=== PATIENT | male | born 1985 | race African-American/Black ===

== ENCOUNTER 2020-05-06 20:57 | Inpatient (IN) | payer OTHER ==
--- NOTE | 2020-05-06 21:02 | PDOC ---
Attending Attestation - Resident Resident Name: Jamar Novak - ED Attending Attestation I have performed the following: I have examined & evaluated the patient, The case was reviewed & discussed with the resident, I agree w/resident's findings & plan - HPI HPI: 05/06/20 21:00 see resident hpi - Physicial Exam PE: 05/06/20 21:01 see resident exam - Medical Decision Making 05/06/20 21:01 34-year-old male with unresponsiveness driven here by a friend with reports of smoking "dust ". Patient had no palpable pulse when removed from the car, he quickly regained pulses and was arousable to noxious stimuli now protecting his airway and verbalizing Plan for CT head, toxicology evaluation observation Discharge - Discharge Information Problems reviewed: Yes Clinical Impression/Diagnosis: Unresponsive episode - Follow up/Referral - Patient Discharge Instructions - Post Discharge Activity
[2020-05-06] MEDS ORDERED: SODIUM CHLORIDE 0.9% 500 ML INFUS.BAG IV ONE (21:10)
[2020-05-06 21:15] VITALS: BMI 29.8
--- NOTE | 2020-05-06 21:28 | PDOC ---
History of Present Illness - General Chief Complaint: Overdose Stated Complaint: OVERDOSE Time Seen by Provider: 05/06/20 21:00 - History of Present Illness Initial Comments: 05/06/20 21:18 34yo male with no reported PMH was dropped off in a car at the [facility], and the ross carrier driver stated the the patient smoked "dust". Patient was initially unresponsive without a pulse. He quickly regained a pulse and was responsive to noxious stim zee. When interviewed minutes later, patient states he took PCP earlier. Denies other substances. Cannot provide further history. PMH/PSH/Med/Allergies: unable to obtain secondary to patient's intoxication ROS: unable to obtain PE: Gen: no acute distress, intoxicated HEENT: NC/AT. PEARRLA. EOMI. rotary nystagmus Neck: supple Heart: RRR. No m/r/g Lungs: CTAB Abdomen: soft, non-tender, non-distended Extremities: no edema, warm and well perfused Neuro: AAOx2 (not to place), intoxicated, moving all extremities Skin: no wounds or lesions Vital Signs Temp Pulse Resp BP Pulse Ox 97.8 F 90 14 140/94 96 05/06/20 21:12 05/06/20 21:12 05/06/20 21:12 05/06/20 21:12 05/06/20 21:12 MDM: 34yo male with no reported PMH was dropped off in a car at the [facility] and states he took PCP. Was not arousable initially with no pulse. DDX, in addition to PCP intoxication, includes ACS, ICH, rhabdomyolysis, syncope, arrhythmia. -EKG -CT head and c-spine -CBC, CMP, trops, CPK, coags, alcohol level -1000ml NS bolus If becomes agitated, plan for benzodiazepines and possible intubation. Likely admit to obs. 05/06/20 22:00 Signed out to night team. Past History - Medical History Allergies/Adverse Reactions: Allergies Allergy/AdvReac Type Severity Reaction Status Date / Time No Known Allergies Allergy Unverified 02/26/14 14:51 - Psycho-Social/Smoking History Smoking History: Never smoked Have you smoked in the past 12 months: No Information on smoking cessation initiated: No - Substance Abuse Hx (Audit-C & DAST Scrn) In the last yr the pt used illegal drug/Rx for NonMed reason: Yes Score: Yes response is considered Positive: 1 Screen Result (Positive result requires Nsg. DAST-10): Positive *Physical Exam - Vital Signs Last Vital Signs Temp Pulse Resp BP Pulse Ox 97.8 F 90 14 140/94 96 05/06/20 21:12 05/06/20 21:12 05/06/20 21:12 05/06/20 21:12 05/06/20 21:12 ED Treatment Course - LABORATORY CBC & Chemistry Diagram: 05/06/20 21:18 05/06/20 21:18 - ADDITIONAL ORDERS Additional order review: Laboratory Results 05/06/20 21:04 POC Glucometer 73 05/06/20 21:04 POC Glucometer 73 - RADIOLOGY Radiology Studies Ordered: Category Date Time Status CERVICAL SPINE CT W/O CONTR [CT] Stat CT Scan 05/06/20 21:[address] WITHOUT CONTRAST [CT] Stat CT Scan 05/06/20 21:09 Ordered Discharge - Discharge Information Problems reviewed: Yes Clinical Impression/Diagnosis: Unresponsive episode PCP intoxication Qualifiers: Complication of substance-induced condition: with unspecified complication Qualified Code(s): F16.929 - Hallucinogen use, unspecified with intoxication, unspecified - Follow up/Referral - Patient Discharge Instructions - Post Discharge Activity
[2020-05-06 21:29] LABS: BASO % 0.7 % (0-2.0); EOS % 2.9 % (0-4.5); HEMATOCRIT 44.9 % (35.4-49); HEMOGLOBIN 15.4 GM/dL (11.7-16.9); LYMPH % 40.7 % (8-40); MCH 35.1 pg (25.7-33.7); MCHC 34.2 g/dl (32.0-35.9); MEAN CELL VOLUME 102.5 fl (80-96); MEAN PLT VOLUME 8.4 fl (7.5-11.1); MONO % 11.8 % (3.8-10.2); NEUT % 43.9 % (42.8-82.8); PLATELET COUNT 234 K/MM3 (134-434); RBC 4.38 M/mm3 (4.00-5.60); RDW 13.2 % (11.9-15.9); WHITE BLOOD COUNT 7.7 K/mm3 (4.0-10.0)
[2020-05-06 21:40] LABS: INR 1.08 (0.83-1.09); PROTHROMBIN TIME (PATIENT) 12.7 SEC (9.7-13.0)
[2020-05-06 21:43] LABS: ACTIVATED PTT 31.6 SECONDS (25.2-36.5)
[2020-05-06 21:56] LABS: ALBUMIN 4.2 g/dl (3.4-5.0); ALK PHOS 74 U/L (45-117); ANION GAP 8 MMOL/L (8-16); BILIRUBIN,TOTAL 0.8 mg/dL (0.2-1); BLOOD UREA NITROGEN 14.2 mg/dL (7-18); CALCIUM 8.7 mg/dL (8.5-10.1); CHLORIDE 107 mmol/L (98-107); CO2 26 mmol/L (21-32); CREATININE 1.3 mg/dL (0.55-1.3); GLUCOSE,RANDOM 75 mg/dL (74-106); POTASSIUM 3.7 mmol/L (3.5-5.1); SGOT/AST 25 U/L (15-37); SGPT/ALT 28 U/L (13-61); SODIUM 141 mmol/L (136-145); TOT PROT 8.2 g/dl (6.4-8.2)
--- NOTE | 2020-05-06 22:14 | PDOC ---
*Physical Exam - Vital Signs Last Vital Signs Temp Pulse Resp BP Pulse Ox 97.8 F 90 14 140/94 96 05/06/20 21:12 05/06/20 21:12 05/06/20 21:12 05/06/20 21:12 05/06/20 21:12 ED Treatment Course - LABORATORY CBC & Chemistry Diagram: 05/07/20 05:37 05/07/20 05:37 - ADDITIONAL ORDERS Additional order review: Laboratory Results 05/06/20 05/06/20 05/06/20 21:18 21:18 21:04 PT with INR 12.70 INR 1.08 PTT (Actin FS) 31.6 Sodium 141 Potassium 3.7 Chloride 107 Carbon Dioxide 26 Anion Gap 8 BUN 14.2 Creatinine 1.3 Est GFR (CKD-EPI)AfAm 83.68 Est GFR (CKD-EPI)NonAf 72.20 POC Glucometer 73 Random Glucose 75 Calcium 8.7 Total Bilirubin 0.8 AST 25 ALT 28 Alkaline Phosphatase 74 Creatine Kinase 505 H Troponin I < 0.02 Total Protein 8.2 Albumin 4.2 Alcohol, Quantitative 131.7 H 05/06/20 05/06/20 21:18 21:04 RBC 4.38 MCV 102.5 H MCHC 34.2 RDW 13.2 MPV 8.4 Neutrophils % 43.9 Lymphocytes % 40.7 H Monocytes % 11.8 H Eosinophils % 2.9 Basophils % 0.7 POC Glucometer 73 - Medications Given in the ED: ED Medications Discontinued Medications Generic Name Dose Route Start Last Admin Trade Name Freq PRN Reason Stop Dose Admin Sodium Chloride 1,000 ml 05/06/20 21:10 05/06/20 21:46 Normal Saline - IV 05/06/20 21:11 1,000 ml ONCE ONE Administration Medical Decision Making - Medical Decision Making 05/06/20 22:14 Signed out to me by Dr. Novak. Brought in by friend who reports patient had overdosed on PCP. Outside ED found unresponsive and pulseless, but spontaneously recovered. Remains in AMS but protecting airway, sleeping in bed but not responsive to voice, localized to painful stimulus. Labs and CT head ordered. Will ultimately need admission for AMS and likely overdose. 05/07/20 03:41 Labs notable for: - MCV >100 - ETOH 137 - CK 500, consistent with prolonged time down CT head/c-spine negative for pathology. ECG NSR HR 82 QTc 428 no AALIYAH/D or TWI CXR no gross pathology Discussed case with admitting team, accepts for admission under Dr. Melton. 05/07/20 06:41 Patient awake and ambulating, more sober than in NAD. Discharge - Discharge Information Problems reviewed: Yes Clinical Impression/Diagnosis: Unresponsive episode PCP intoxication Qualifiers: Complication of substance-induced condition: with unspecified complication Qualified Code(s): F16.929 - Hallucinogen use, unspecified with intoxication, unspecified Condition: Guarded - Admission Yes - Follow up/Referral - Patient Discharge Instructions - Post Discharge Activity
--- NOTE | 2020-05-07 01:25 | PN ---
Teaching Attending Note Name of Resident: Omayra Montgomery ATTENDING PHYSICIAN STATEMENT I saw and evaluated the patient. I reviewed the resident's note and discussed the case with the resident. I agree with the resident's findings and plan as documented. SUBJECTIVE: Patient is a 34 year old man with a PMH of Asthma (inactive), Tobacco use and Polysubstance abuse (PCP, Alcohol, Marijuana) who was dropped off in a car at the [facility] and the auto parts delivery driver stated the the patient smoked "dust". Patient was initially unresponsive without a pulse. He quickly regained a pulse and was responsive to noxious stimuli. When interviewed minutes later, patient states he took PCP earlier. Denies using other substances. Cannot provide further history due intoxication. Family history is unobtainable. OBJECTIVE: Somnolent but arousable Vital Signs Period Temp Pulse Resp BP Sys/Kelsey Pulse Ox Last 24 Hr 97.8 F 90 14 140/94 96 HEENT: No Jaundice, eye redness or discharge, PERRLA, EOMI. Normocephalic, atraumatic. External ears are normal and hearing is grossly intact. No nasal discharge. Neck: Supple, nontender. No palpable adenopathy or thyromegaly. No JVD Chest: Good effort. Clear to auscultation and percussion. Heart: Regular. No S3, rub or murmur Abdomen: Not distended, soft, nontender and no HSM. No rebound or guarding. Normal bowel sounds. Ext: Peripheral pulses intact. No leg edema. Skin: Warm and dry. No petechiae, rash or ecchymosis. Neuro: Alert. Somnolent but arousable. Oriented to person and place. No ast erexis or tremors. CN 2-12 grossly intact. Sensation grossly intact in all four extremities and DTR are symmetric. Psych: Appropriate mood and affect. Good insight. Abnormal Lab Results 05/06/20 05/06/20 21:18 21:18 MCV 102.5 H MCH 35.1 H Lymphocytes % 40.7 H Monocytes % 11.8 H Creatine Kinase 505 H Alcohol, Quantitative 131.7 H Current Medications Generic Name Dose Route Start Last Admin Trade Name Freq PRN Reason Stop Dose Admin Enoxaparin Sodium 40 mg 05/07/20 10:00 Lovenox - SQ DAILY GRISELDA Folic Acid 1 mg 05/07/20 10:00 Folic Acid - PO DAILY GRISELDA Sodium Chloride 1,000 mls @ 125 mls/hr 05/07/20 03:00 Normal Saline - IV ASDIR GRSIELDA Folic Acid 1 mg/ Thiamine HCl 1,000 mls @ 125 mls/hr 05/07/20 03:55 100 mg/ Multivitamins/Minerals IVPB 05/07/20 11:54 10 ml/ Sodium Chloride ONCE ONE Lorazepam 1 mg 05/09/20 05:00 Ativan - PO 05/09/20 23:01 0500,1100,1700,2300 GRISELDA Lorazepam 1 mg 05/07/20 03:59 Ativan - PO 05/09/20 23:59 Q4H PRN Symptoms of Withdrawal Lorazepam 2 mg 05/07/20 11:00 Ativan - PO 05/08/20 23:01 0500,1100,1700,2300 GRISELDA Lorazepam 0.5 mg 05/10/20 05:00 Ativan - PO 05/10/20 23:01 Q6H GRISELDA Lorazepam 0.5 mg 05/10/20 00:00 Ativan - PO 05/11/20 00:00 Q4H PRN Symptoms of Withdrawal Lorazepam 0.5 mg 05/11/20 05:00 Ativan - PO 05/11/20 05:01 ONCE ONE Thiamine HCl 100 mg 05/07/20 10:00 Vitamin B1 - PO DAILY [facility] ASSESSMENT AND PLAN: 1. Altered mental status - PCP overdose/Alcohol intoxication - Alcohol level is 131.7 mg/dL. No evidence of acute intracranial pathology on noncontrast head CT scan. C-spine CT did not show any fracture or subluxation. CXR, urine toxicology, and urinalysis pending. EKG shows NSR at 82/minute, LVH and QTc [address]-T wave changes. Initial troponin is negative. Will admit to telemetry, monitor closely for respiratory compromise, call Poison control and hydrate with IV NS after banana bag and trend CPK. [facility]plement [facility] and do neurochecks. Implement seizure, fall and aspiration precautions. Treat with IV Banana bag, thiamine and folic acid. Monitor and replete electrolytes (Ca,Mg,K,P). Counseled patient about abstaining from alcohol. Will consult resource specialist and refer to alcohol detox upon discharge. Viral testing for COVID-19 ordered and patient placed on airborne, droplet and contact isolation. 2. Tobacco Use Counseled on risks associated with tobacco use. We will provide patient all the necessary assistance to facilitate smoking cessation and prescribe Nicotine patch. 3. DVT prophylaxis - Lovenox 40 mg SQ q 24 hours. 4. Advance directives - Full code
[2020-05-07] MEDS ORDERED: FOLIC ACID INJECTION - 1 MG, THIAMINE HCL 100 MG, MULTIVIT INJECTION ADULT 10 ML in SOD... IVPB ONE (03:55)
[2020-05-07] MEDS ORDERED: LORazepam 1 MG TABLET PO PRN ×2 (03:59→13:45)
--- NOTE | 2020-05-07 04:43 | HP ---
CHIEF COMPLAINT: I know I'm in the hospital PCP: unknown HISTORY OF PRESENT ILLNESS: 34yo M with PMHx of asthma who was brought to the ED due to PCP intoxication. Per signout patient was brought in by his friend who said that the patient took PCP. At the time patient was unresponsive and without a pulse. CPR was started and patient spontaneously regained pulse and has been protecting his airways ever since. Upon conversation with patient, he endorsed PCP, marihuana, and alcohol, but was unable to indicated quantities and routes of administration except for the marihuana which he said he smokes "an eight" per day (equates to 3.5g). Patient showed difficulties following commands and staying awake. Denied associated symptoms including headaches, dizziness, NVD, constipation, dysuria, urinary frequency. ER course was notable for: (1) remarkable labs: MCV 102.5, CK 505, quant alcohol 131.7 (2) unremarkable head and cervical spine CT (3) initial BP 140/94 Recent Travel: denied PAST MEDICAL HISTORY: as per HPI PAST SURGICAL HISTORY: denied Family History: noncontributory - patient does not know his father and other family members are healthy Social History: Smokin/2 pack per day Alcohol: "too much" but denied daily consumption Drugs: PCPswetha Work: former construction project assistant, currently not working Home: lives with uncle and uncle's children, patient has 2 biological children but they live with their mother Allergies No Known Allergies Allergy (Unverified 02/26/14 14:51) HOME MEDICATIONS: has an inhaler for his asthma at home which he rarely uses - denied daily or weekly use REVIEW OF SYSTEMS as per HPI PHYSICAL EXAMINATION Vital Signs - 24 hr 05/06/20 21:12 Temperature 97.8 F Pulse Rate 90 Respiratory 14 Rate Blood Pressure 140/94 O2 Sat by Pulse 96 Oximetry (%) GENERAL: AAM, appears stated age, average body habitus, somnolent, arousable but difficult to keep his attention, fully oriented (self, place, year, president) no acute sighs of distress HEAD: Normal with no signs of trauma EYES: PERRL, direct and consensual pupillary reflex intact, extraocular movements intact without horizontal or vertical nystagmus, flushed red sclera, no lid lag but occasional oculogyric crisis LUNGS: CTAB HEART: RRR, normal S1 and S2 without murmur ABDOMEN: Soft, nontender, mildly distended, active bowel sounds, no hepatomegaly appreciated EXTREMITIES: 2+ radial and dorsalis pedis pulses, warm to touch, no peripheral edema, sensation intact bilaterally in UEs and LEs NEUROLOGICAL: Cranial nerves II-XII grossly intact, slurred speech PSYCHIATRIC: barely cooperative due to somnolence. Poor eye contact and occ asionally directly stares SKIN: no other rashes or lesions noted, bilateral feet are markedly dry, flaky, cracked, and with pronounced onychomycosis Laboratory Results - last 24 hr 05/06/20 05/06/20 05/06/20 21:04 21:18 21:18 WBC 7.7 RBC 4.38 Hgb 15.4 Hct 44.9 MCV 102.5 H MCH 35.1 H MCHC 34.2 RDW 13.2 Plt Count 234 MPV 8.4 Absolute Neuts (auto) 3.4 Neutrophils % 43.9 Lymphocytes % 40.7 H Monocytes % 11.8 H Eosinophils % 2.9 Basophils % 0.7 Nucleated RBC % 0 PT with INR 12.70 INR 1.08 PTT (Actin FS) 31.6 Sodium Potassium Chloride Carbon Dioxide Anion Gap BUN Creatinine Est GFR (CKD-EPI)AfAm Est GFR (CKD-EPI)NonAf POC Glucometer 73 Random Glucose Calcium Total Bilirubin AST ALT Alkaline Phosphatase Creatine Kinase Creatine Kinase Index CK-MB (CK-2) Troponin I Total Protein Albumin Alcohol, Quantitative 05/06/20 21:18 WBC RBC Hgb Hct MCV MCH MCHC RDW Plt Count MPV Absolute Neuts (auto) Neutrophils % Lymphocytes % Monocytes % Eosinophils % Basophils % Nucleated RBC % PT with INR INR PTT (Actin FS) Sodium 141 Potassium 3.7 Chloride 107 Carbon Dioxide 26 Anion Gap 8 BUN 14.2 Creatinine 1.3 Est GFR (CKD-EPI)AfAm 83.68 Est GFR (CKD-EPI)NonAf 72.20 POC Glucometer Random Glucose 75 Calcium 8.7 Total Bilirubin 0.8 AST 25 ALT 28 Alkaline Phosphatase 74 Creatine Kinase 505 H Creatine Kinase Index 0.3 CK-MB (CK-2) 1.9 Troponin I < 0.02 Total Protein 8.2 Albumin 4.2 Alcohol, Quantitative 131.7 H ASSESSMENT/PLAN: 34yo M with PMHx of asthma who was brought to the ED due to PCP intoxication. ED workup was remarkable for MCV 102.5, CK 505, quant alcohol 131.7, and patient was admitted for further management of PCP and alcohol intoxication. #PCP and alcohol intoxication - started IVFs - started alcohol withdrawal protocol with librium at 11am - gave banana bag, thiamine, folate - ordered urine tox and PRN straight cath in case patient unable to provide urine sample - ordered acetaminophen and salicylate levels - repeat CK ordered - CXR ordered - fall precautions - called poison control - they recommended IVFs, benzoes, CK Q4h checks, monitor body temperature #FEN - 125cc/h NS - replete lytes PRN - regular diet #PPX - DVT: lovenox #Dispo: telemetry Family Medical History Family History: As Documented Visit type - Emergency Visit Emergency Visit: Yes ED Registration Date: 05/06/20 Care time: The patient presented to the Emergency Department on the above date and was hospitalized for further evaluation of their emergent condition. - New Patient This patient is new to me today: Yes Date on this admission: 05/07/20 - Critical Care Critical Care patient: No ATTENDING PHYSICIAN STATEMENT I saw and evaluated the patient. I reviewed the resident's note and discussed the case with the resident. I agree with the resident's findings and plan as documented. SUBJECTIVE: OBJECTIVE: ASSESSMENT AND PLAN:
[2020-05-07] MEDS: SODIUM CHLORIDE 1,000 ML IV SCH ×2 (05:35→22:22)
[2020-05-07 06:55] LABS: COCAINE, UR NEGATIVE ng/ml (CUTOFF=300); OPIATES, URI NEGATIVE ng/ml (CUTOFF=300); URINE AMPHETAMINES NEGATIVE ng/ml (CUTOFF=500); URINE BARBITURATES NEGATIVE ng/ml (CUTOFF=200)
[2020-05-07 07:02] LABS: URINE BENZODIAZEPINES NEGATIVE ng/ml (CUTOFF=200)
[2020-05-07 07:03] LABS: BASO % 0.4 % (0-2.0); EOS % 3.6 % (0-4.5); HEMATOCRIT 44.1 % (35.4-49); HEMOGLOBIN 14.8 GM/dL (11.7-16.9); LYMPH % 46.3 % (8-40); MCH 34.5 pg (25.7-33.7); MCHC 33.7 g/dl (32.0-35.9); MEAN CELL VOLUME 102.3 fl (80-96); MEAN PLT VOLUME 8.5 fl (7.5-11.1); MONO % 12.8 % (3.8-10.2); NEUT % 36.9 % (42.8-82.8); PLATELET COUNT 216 K/MM3 (134-434); RBC 4.31 M/mm3 (4.00-5.60); RDW 12.7 % (11.9-15.9); WHITE BLOOD COUNT 5.8 K/mm3 (4.0-10.0)
[2020-05-07 07:09] LABS: PHENCYCLIDINE,URINE POSITIVE ng/ml (CUTOFF=25)
[2020-05-07 07:10] LABS: METHADONE, UR NEGATIVE ng/ml (CUTOFF=300)
[2020-05-07 07:36] LABS: ALBUMIN 3.7 g/dl (3.4-5.0); BLOOD UREA NITROGEN 11.7 mg/dL (7-18); CALCIUM 8.3 mg/dL (8.5-10.1); MAGNESIUM 2.1 mg/dL (1.8-2.4); POTASSIUM 3.7 mmol/L (3.5-5.1)
[2020-05-07 07:38] LABS: BILIRUBIN,TOTAL 1.2 mg/dL (0.2-1); CREATININE 1.1 mg/dL (0.55-1.3); PHOSPHOROUS 2.9 mg/dL (2.5-4.9); TOT PROT 7.1 g/dl (6.4-8.2)
--- NOTE | 2020-05-07 09:15 | EKG ---
Test Reason : Blood Pressure : / mmHG Vent. Rate : 082 BPM Atrial Rate : 082 BPM P-R Int : 152 ms QRS Dur : 086 ms QT Int : 368 ms P-R-T Axes : 045 062 021 degrees QTc Int : 429 ms NORMAL SINUS RHYTHM MINIMAL VOLTAGE CRITERIA FOR LVH, MAY BE NORMAL VARIANT BORDERLINE ECG NO PREVIOUS ECGS AVAILABLE Confirmed by MD MENDOZA MOYSES ([id number]) on 05/07/2020 9:15:25 AM Referred By: Confirmed By:CHRISTIAN MENDOZA MD
[2020-05-07] MEDS: ENOXAPARIN NA (PORCINE) 40 MG/0.4 ML DISP.SYRIN SQ SCH (11:00)
[2020-05-07] MEDS ORDERED: LORazepam 1 MG TABLET PO SCH (11:00)
[2020-05-07] MEDS ORDERED: FOLIC ACID 1 MG TABLET (FP) ONE (12:18)
[2020-05-07] MEDS ORDERED: THIAMINE HCL 100 MG TABLET (FP) ONE (12:18)
[2020-05-07] MEDS ORDERED: ENOXAPARIN NA (PORCINE) 40 MG/0.4 ML DISP.SYRIN SQ ONE (12:19)
[2020-05-07] MEDS ORDERED: LORazepam 2 MG/ML SDV VIAL IVPUSH PRN (12:25)
--- NOTE | 2020-05-07 13:57 | PN ---
Physical Exam: SUBJECTIVE: Patient seen and examined. Lethargic. Denies any f/c, SOB, N/V. OBJECTIVE: Vital Signs Period Temp Pulse Resp BP Sys/Kelsey Pulse Ox Last 24 Hr 97.6 F-97.8 F 57-90 14-18 122-140/87-96 96-99 GENERAL: The patient is awake, alert, and fully oriented, in no acute distress. Lethargic. HEAD: Normal with no signs of trauma. EYES: PERRL, extraocular movements intact, sclera anicteric, conjunctiva clear. No ptosis. ENT: Ears normal, nares patent, oropharynx clear without exudates, moist mucous membranes. NECK: Trachea midline, full range of motion, supple. LUNGS: Breath sounds equal, clear to auscultation bilaterally, no wheezes, no crackles, no accessory muscle use. HEART: Regular rate and rhythm, S1, S2 without murmur, rub or gallop. ABDOMEN: Soft, nontender, nondistended, normoactive bowel sounds, no guarding, no rebound, no hepatosplenomegaly, no masses. EXTREMITIES: 2+ pulses, warm, well-perfused, no edema. NEUROLOGICAL: Cranial nerves II through XII grossly intact. Normal speech, gait not observed. PSYCH: Normal mood, normal affect. SKIN: Warm, dry, normal turgor, no rashes or lesions noted Laboratory Results - last 24 hr 05/06/20 05/06/20 05/06/20 21:04 21:18 21:18 WBC 7.7 RBC 4.38 Hgb 15.4 Hct 44.9 MCV 102.5 H MCH 35.1 H MCHC 34.2 RDW 13.2 Plt Count 234 MPV 8.4 Absolute Neuts (auto) 3.4 Neutrophils % 43.9 Lymphocytes % 40.7 H Monocytes % 11.8 H Eosinophils % 2.9 Basophils % 0.7 Nucleated RBC % 0 PT with INR 12.70 INR 1.08 PTT (Actin FS) 31.6 Sodium Potassium Chloride Carbon Dioxide Anion Gap BUN Creatinine Est GFR (CKD-EPI)AfAm Est GFR (CKD-EPI)NonAf POC Glucometer 73 Random Glucose Calcium Phosphorus Magnesium Total Bilirubin AST ALT Alkaline Phosphatase Creatine Kinase Creatine Kinase Index CK-MB (CK-2) Troponin I Total Protein Albumin Salicylates Opiates Screen Methadone Screen Acetaminophen Barbiturate Screen Phencyclidine Screen Ur Amphetamines Screen MDMA (Ecstasy) Screen Benzodiazepines Screen Cocaine Screen U Marijuana (THC) Screen Alcohol, Quantitative Isopropyl Alc, Quant 05/06/20 05/07/20 05/07/20 21:18 05:37 05:37 WBC 5.8 RBC 4.31 Hgb 14.8 Hct 44.1 MCV 102.3 H MCH 34.5 H MCHC 33.7 RDW 12.7 Plt Count 216 MPV 8.5 Absolute Neuts (auto) 2.1 Neutrophils % 36.9 L Lymphocytes % 46.3 H Monocytes % 12.8 H Eosinophils % 3.6 Basophils % 0.4 Nucleated RBC % 0 PT with INR INR PTT (Actin FS) Sodium 141 Potassium 3.7 Chloride 107 Carbon Dioxide 26 Anion Gap 8 BUN 14.2 Creatinine 1.3 Est GFR (CKD-EPI)AfAm 83.68 Est GFR (CKD-EPI)NonAf 72.20 POC Glucometer Random Glucose 75 Calcium 8.7 Phosphorus Magnesium Total Bilirubin 0.8 AST 25 ALT 28 Alkaline Phosphatase 74 Creatine Kinase 505 H Creatine Kinase Index 0.3 CK-MB (CK-2) 1.9 Troponin I < 0.02 Total Protein 8.2 Albumin 4.2 Salicylates < 1.7 L Opiates Screen Methadone Screen Acetaminophen < 2.0 Barbiturate Screen Phencyclidine Screen Ur Amphetamines Screen MDMA (Ecstasy) Screen Benzodiazepines Screen Cocaine Screen U Marijuana (THC) Screen Alcohol, Quantitative 131.7 H Isopropyl Alc, Quant 05/07/20 05/07/20 05/07/20 05:37 05:37 06:15 WBC RBC Hgb Hct MCV MCH MCHC RDW Plt Count MPV Absolute Neuts (auto) Neutrophils % Lymphocytes % Monocytes % Eosinophils % Basophils % Nucleated RBC % PT with INR INR PTT (Actin FS) Sodium 143 Potassium 3.7 Chloride 110 H Carbon Dioxide 26 Anion Gap 7 L BUN 11.7 Creatinine 1.1 Est GFR (CKD-EPI)AfAm 102.40 Est GFR (CKD-EPI)NonAf 88.36 POC Glucometer Random Glucose 67 L Calcium 8.3 L Phosphorus 2.9 Magnesium 2.1 Total Bilirubin 1.2 H AST 22 ALT 25 Alkaline Phosphatase 65 Creatine Kinase 396 H Creatine Kinase Index 0.4 CK-MB (CK-2) 1.6 Troponin I < 0.02 Total Protein 7.1 Albumin 3.7 Salicylates Opiates Screen Negative Methadone Screen Negative Acetaminophen Barbiturate Screen Negative Phencyclidine Screen Positive A* Ur Amphetamines Screen Negative MDMA (Ecstasy) Screen Negative Benzodiazepines Screen Negative Cocaine Screen Negative U Marijuana (THC) Screen Positive A* Alcohol, Quantitative Isopropyl Alc, Quant 05/07/20 05/07/20 07:40 08:00 WBC RBC Hgb Hct MCV MCH MCHC RDW Plt Count MPV Absolute Neuts (auto) Neutrophils % Lymphocytes % Monocytes % Eosinophils % Basophils % Nucleated RBC % PT with INR INR PTT (Actin FS) Sodium Potassium Chloride Carbon Dioxide Anion Gap BUN Creatinine Est GFR (CKD-EPI)AfAm Est GFR (CKD-EPI)NonAf POC Glucometer Random Glucose Calcium Phosphorus Magnesium Total Bilirubin AST ALT Alkaline Phosphatase Creatine Kinase Creatine Kinase Index CK-MB (CK-2) Troponin I Total Protein Albumin Salicylates Opiates Screen Methadone Screen Acetaminophen Barbiturate Screen Phencyclidine Screen Ur Amphetamines Screen MDMA (Ecstasy) Screen Benzodiazepines Screen Cocaine Screen U Marijuana (THC) Screen Alcohol, Quantitative 4.0 Isopropyl Alc, Quant Cancelled Active Medications Generic Name Dose Route Start Last Admin Trade Name Freq PRN Reason Stop Dose Admin Enoxaparin Sodium 40 mg 05/07/20 10:00 05/07/20 11:00 Lovenox - SQ 40 mg DAILY GRISELDA Administration Folic Acid 1 mg 05/07/20 10:00 Folic Acid - PO DAILY GRISELDA Sodium Chloride 1,000 mls @ 125 mls/hr 05/07/20 03:00 05/07/20 05:35 Normal Saline - IV 125 mls/hr ASDIR GRISELDA Administration Lorazepam 1 mg 05/07/20 12:25 Ativan Injection - IVPUSH ONCE PRN WITHDRAWAL(CONT SUBST) Lorazepam 1 mg 05/09/20 05:00 Ativan - PO 05/09/20 23:01 0500,1100,1700,2300 GRISELDA Lorazepam 1 mg 05/07/20 13:45 Ativan - PO 05/09/20 23:59 Q4H PRN Symptoms of Withdrawal Lorazepam 2 mg 05/07/20 17:00 Ativan PO 05/08/20 23:01 0500,1100,1700,2300 GRISELDA Lorazepam 0.5 mg 05/10/20 05:00 Ativan - PO 05/10/20 23:01 Q6H GRISELDA Lorazepam 0.5 mg 05/10/20 00:00 Ativan - PO 05/11/20 00:00 Q4H PRN Symptoms of Withdrawal Lorazepam 0.5 mg 05/11/20 05:00 Ativan - PO 05/11/20 05:01 ONCE ONE Thiamine HCl 100 mg 05/07/20 10:00 Vitamin B1 - PO DAILY GRISELDA ASSESSMENT/PLAN: 34yo M with PMHx of asthma who was brought to the ED due to PCP intoxication. ED workup was remarkable for MCV 102.5, CK 505, quant alcohol 131.7, and patient was admitted for further management of PCP and alcohol intoxication. #PCP and alcohol intoxication -intoxicated/lethargic throughout the morning, repeat alcohol level 4 -CIWA 2 -started on ativan protocol for 1700 -Utox positive for PCP, marijuana and alcohol -fall precautions -on NS 125cc/hr -CT head and spine, CXR negative FEN 125cc/h NS Monitor electrolytes Regular diet DVT Lovenox Dispo Admit to telemetry. CIWA 2. Protocol started for 1700. Visit type - Emergency Visit Emergency Visit: Yes ED Registration Date: 05/06/20 Care time: The patient presented to the Emergency Department on the above date and was hospitalized for further evaluation of their emergent condition. - New Patient This patient is new to me today: No - Critical Care Critical Care patient: No ATTENDING PHYSICIAN STATEMENT I saw and evaluated the patient. I reviewed the resident's note and discussed the case with the resident. I agree with the resident's findings and plan as documented. SUBJECTIVE: OBJECTIVE: ASSESSMENT AND PLAN:
--- NOTE | 2020-05-07 13:59 | PN ---
Teaching Attending Note Name of Resident: Senait Rojo ATTENDING PHYSICIAN STATEMENT I saw and evaluated the patient. I reviewed the resident's note and discussed the case with the resident. I agree with the resident's findings and plan as documented. SUBJECTIVE: pt seen and examined OBJECTIVE: Last Vital Signs Temp Pulse Resp BP Pulse Ox 97.6 F 57 L 18 130/94 98 05/07/20 11:25 05/07/20 11:25 05/07/20 11:25 05/07/20 11:25 05/07/20 11:25 GENERAL: Awake, alert, and fully oriented, in no acute distress. HEAD: Normal with no signs of trauma. EYES: Pupils equal, round and reactive to light, sclera anicteric, conjunctiva clear. LUNGS: Breath sounds equal, clear to auscultation bilaterally. No wheezes, and no crackles. No accessory muscle use. HEART: Regular rate and rhythm, normal S1 and S2 ABDOMEN: Soft, nontender, not distended MUSCULOSKELETAL: Normal range of motion at all joints. No bony deformities or tenderness. No CVA tenderness. UPPER EXTREMITIES: 2+ pulses, warm, well-perfused. No cyanosis. No clubbing. No peripheral edema. LOWER EXTREMITIES: 2+ pulses, warm, well-perfused. No calf tenderness. No peripheral edema. NEUROLOGICAL: Cranial nerves II-XII intact. Normal speech. CBCD WBC 5.8 K/mm3 (4.0-10.0) 05/07/20 05:37 RBC 4.31 M/mm3 (4.00-5.60) 05/07/20 05:37 Hgb 14.8 GM/dL (11.7-16.9) 05/07/20 05:37 Hct 44.1 % (35.4-49) 05/07/20 05:37 MCV 102.3 fl (80-96) H 05/07/20 05:37 MCHC 33.7 g/dl (32.0-35.9) 05/07/20 05:37 RDW 12.7 % (11.9-15.9) 05/07/20 05:37 Plt Count 216 K/MM3 (134-434) 05/07/20 05:37 MPV 8.5 fl (7.5-11.1) 05/07/20 05:37 CMP Sodium 143 mmol/L (136-145) 05/07/20 05:37 Potassium 3.7 mmol/L (3.5-5.1) 05/07/20 05:37 Chloride 110 mmol/L (98-107) H 05/07/20 05:37 Carbon Dioxide 26 mmol/L (21-32) 05/07/20 05:37 Anion Gap 7 MMOL/L (8-16) L 05/07/20 05:37 BUN 11.7 mg/dL (7-18) 05/07/20 05:37 Creatinine 1.1 mg/dL (0.55-1.3) 05/07/20 05:37 Calcium 8.3 mg/dL (8.5-10.1) L 05/07/20 05:37 Total Bilirubin 1.2 mg/dL (0.2-1) H 05/07/20 05:37 AST 22 U/L (15-37) 05/07/20 05:37 ALT 25 U/L (13-61) 05/07/20 05:37 Alkaline Phosphatase 65 U/L (45-117) 05/07/20 05:37 Total Protein 7.1 g/dl (6.4-8.2) 05/07/20 05:37 Albumin 3.7 g/dl (3.4-5.0) 05/07/20 05:37 Active Medications Enoxaparin Sodium (Lovenox -) 40 mg SQ DAILY [facility] Last Admin: 05/07/20 11:00 Dose: 40 mg Documented by: Folic Acid (Folic Acid -) 1 mg PO DAILY [facility] Sodium Chloride (Normal Saline -) 1,000 mls @ 125 mls/hr IV ASDIR [facility] Last Admin: 05/07/20 05:35 Dose: 125 mls/hr Documented by: Lorazepam (Ativan Injection -) 1 mg IVPUSH ONCE PRN PRN Reason: WITHDRAWAL(CONT SUBST) Lorazepam (Ativan -) 1 mg PO 0500,1100,1700,2300 [facility] Stop: 05/09/20 23:01 Lorazepam (Ativan -) 1 mg PO Q4H PRN PRN Reason: Symptoms of Withdrawal Stop: 05/09/20 23:59 Lorazepam (Ativan) 2 mg PO 0500,1100,1700,2300 [facility] Stop: 05/08/20 23:01 Lorazepam (Ativan -) 0.5 mg PO Q6H [facility] Stop: 05/10/20 23:01 Lorazepam (Ativan -) 0.5 mg PO Q4H PRN PRN Reason: Symptoms of Withdrawal Stop: 05/11/20 00:00 Lorazepam (Ativan -) 0.5 mg PO ONCE ONE Stop: 05/11/20 05:01 Thiamine HCl (Vitamin B1 -) 100 mg PO DAILY [facility] ASSESSMENT AND PLAN: 34yo M with PMHx of asthma who was brought to the ED due to PCP intoxication. ED workup was remarkable for MCV 102.5, CK 505, quant alcohol 131.7, and patient was admitted for further management of PCP and alcohol intoxication. #PCP and alcohol intoxication IVFs, withdrawal protocol MV, thiamine, folate postive PCP, marijuana, EtOH trend CK seizures, fall precautions poison control telemetry polysubstance abuse DVT prophylaxis
[2020-05-07] MEDS: FOLIC ACID 1 MG TABLET (FP) PO SCH (15:14)
[2020-05-07] MEDS: THIAMINE HCL 100 MG TABLET (FP) PO SCH (15:15)
[2020-05-07] MEDS: LORazepam 1 MG TABLET PO SCH ×2 (16:47→22:20)
[2020-05-08] MEDS: LORazepam 1 MG TABLET PO SCH ×3 (06:32→17:22)
[2020-05-08] MEDS: SODIUM CHLORIDE 1,000 ML IV SCH ×2 (06:33→06:47)
[2020-05-08 08:23] LABS: ALBUMIN 3.5 g/dl (3.4-5.0); BILIRUBIN,TOTAL 1.1 mg/dL (0.2-1); BLOOD UREA NITROGEN 14.1 mg/dL (7-18); CALCIUM 8.7 mg/dL (8.5-10.1); CREATININE 1.1 mg/dL (0.55-1.3); PHOSPHOROUS 2.9 mg/dL (2.5-4.9); POTASSIUM 4.4 mmol/L (3.5-5.1)
[2020-05-08 08:54] LABS: HEMATOCRIT 46.6 % (35.4-49); HEMOGLOBIN 15.5 GM/dL (11.7-16.9); MCH 34.8 pg (25.7-33.7); MCHC 33.2 g/dl (32.0-35.9); MEAN CELL VOLUME 104.9 fl (80-96); MEAN PLT VOLUME 8.7 fl (7.5-11.1); PLATELET COUNT 181 K/MM3 (134-434); RBC 4.44 M/mm3 (4.00-5.60); RDW 13.3 % (11.9-15.9); WHITE BLOOD COUNT 5.5 K/mm3 (4.0-10.0)
[2020-05-08] MEDS: FOLIC ACID 1 MG TABLET (FP) PO SCH (09:44)
[2020-05-08] MEDS: THIAMINE HCL 100 MG TABLET (FP) PO SCH (09:44)
[2020-05-08] MEDS: ENOXAPARIN NA (PORCINE) 40 MG/0.4 ML DISP.SYRIN SQ SCH (09:44)
--- NOTE | 2020-05-08 14:23 | PN ---
Teaching Attending Note Name of Resident: Senait Rojo ATTENDING PHYSICIAN STATEMENT I saw and evaluated the patient. I reviewed the resident's note and discussed the case with the resident. I agree with the resident's findings and plan as documented. SUBJECTIVE: pt seen and examined OBJECTIVE: Last Vital Signs Temp Pulse Resp BP Pulse Ox 98.1 F 85 18 134/93 99 05/08/20 10:00 05/08/20 10:00 05/08/20 10:00 05/08/20 10:00 05/08/20 10:00 GENERAL: Awake, alert, and fully oriented, in no acute distress. LUNGS: Breath sounds equal, clear to auscultation bilaterally. No wheezes, and no crackles. No accessory muscle use. HEART: Regular rate and rhythm, normal S1 and S2 ABDOMEN: Soft, nontender, not distended NEUROLOGICAL: Cranial nerves II-XII intact. Normal speech. CBCD WBC 5.5 K/mm3 (4.0-10.0) 05/08/20 06:55 RBC 4.44 M/mm3 (4.00-5.60) 05/08/20 06:55 Hgb 15.5 GM/dL (11.7-16.9) 05/08/20 06:55 Hct 46.6 % (35.4-49) 05/08/20 06:55 MCV 104.9 fl (80-96) H 05/08/20 06:55 MCHC 33.2 g/dl (32.0-35.9) 05/08/20 06:55 RDW 13.3 % (11.9-15.9) 05/08/20 06:55 Plt Count 181 K/MM3 (134-434) 05/08/20 06:55 MPV 8.7 fl (7.5-11.1) 05/08/20 06:55 CMP Sodium 141 mmol/L (136-145) 05/08/20 06:55 Potassium 4.4 mmol/L (3.5-5.1) 05/08/20 06:55 Chloride 110 mmol/L (98-107) H 05/08/20 06:55 Carbon Dioxide 26 mmol/L (21-32) 05/08/20 06:55 Anion Gap 6 MMOL/L (8-16) L 05/08/20 06:55 BUN 14.1 mg/dL (7-18) 05/08/20 06:55 Creatinine 1.1 mg/dL (0.55-1.3) 05/08/20 06:55 Calcium 8.7 mg/dL (8.5-10.1) 05/08/20 06:55 Total Bilirubin 1.1 mg/dL (0.2-1) H 05/08/20 06:55 AST 19 U/L (15-37) 05/08/20 06:55 ALT 22 U/L (13-61) 05/08/20 06:55 Alkaline Phosphatase 61 U/L (45-117) 05/08/20 06:55 Total Protein 7.0 g/dl (6.4-8.2) 05/08/20 06:55 Albumin 3.5 g/dl (3.4-5.0) 05/08/20 06:55 Active Medications Enoxaparin Sodium (Lovenox -) 40 mg SQ DAILY [facility] Last Admin: 05/08/20 09:44 Dose: 40 mg Documented by: Folic Acid (Folic Acid -) 1 mg PO DAILY [facility] Last Admin: 05/08/20 09:44 Dose: 1 mg Documented by: Sodium Chloride (Normal Saline -) 1,000 mls @ 125 mls/hr IV ASDIR [facility] Last Admin: 05/08/20 06:47 Dose: Not Given Documented by: Lorazepam (Ativan Injection -) 1 mg IVPUSH ONCE PRN PRN Reason: WITHDRAWAL(CONT SUBST) Lorazepam (Ativan -) 1 mg PO 0500,1100,1700,2300 [facility] Stop: 05/09/20 23:01 Lorazepam (Ativan -) 1 mg PO Q4H PRN PRN Reason: Symptoms of Withdrawal Stop: 05/09/20 23:59 Lorazepam (Ativan -) 2 mg PO 0500,1100,1700,2300 [facility] Stop: 05/08/20 23:01 Last Admin: 05/08/20 12:28 Dose: 2 mg Documented by: Lorazepam (Ativan -) 0.5 mg PO Q6H [facility] Stop: 05/10/20 23:01 Lorazepam (Ativan -) 0.5 mg PO Q4H PRN PRN Reason: Symptoms of Withdrawal Stop: 05/11/20 00:00 Lorazepam (Ativan -) 0.5 mg PO ONCE ONE Stop: 05/11/20 05:01 Thiamine HCl (Vitamin B1 -) 100 mg PO DAILY [facility] Last Admin: 05/08/20 09:44 Dose: 100 mg Documented by: ASSESSMENT AND PLAN: 34yo M with PMHx of asthma who was brought to the ED due to PCP intoxication. ED workup was remarkable for MCV 102.5, CK 505, quant alcohol 131.7, and patient was admitted for further management of PCP and alcohol intoxication. #PCP and alcohol intoxication IVFs, withdrawal protocol MV, thiamine, folate postive PCP, marijuana, EtOH trend CK seizures, fall precautions poison control off telemetry polysubstance abuse DVT prophylaxis
[2020-05-08 14:57] VITALS: BP 139/81; PULSE 73; TEMP 97.8
--- NOTE | 2020-05-08 16:23 | DS ---
Physical Exam: SUBJECTIVE: Patient seen and examined OBJECTIVE: Vital Signs Period Temp Pulse Resp BP Sys/Kelsey Pulse Ox Last 24 Hr 97.5 F-98.2 F 53-85 14-18 134-140/68-99 97-100 PHYSICAL EXAM GENERAL: The patient is awake, alert, and fully oriented, in no acute distress. HEAD: Normal with no signs of trauma. EYES: PERRL, extraocular movements intact, sclera anicteric, conjunctiva clear. ENT: Ears normal, nares patent, oropharynx clear without exudates, moist mucous membranes. NECK: Trachea midline, full range of motion, supple. LUNGS: Breath sounds equal, clear to auscultation bilaterally, no wheezes, no crackles, no accessory muscle use. HEART: Regular rate and rhythm, S1, S2 without murmur, rub or gallop. ABDOMEN: Soft, nontender, nondistended, normoactive bowel sounds, no guarding, no rebound, no hepatosplenomegaly, no masses. EXTREMITIES: 2+ pulses, warm, well-perfused, no edema. NEUROLOGICAL: Cranial nerves II through XII grossly intact. Normal speech, gait not observed. PSYCH: Normal mood, normal affect. SKIN: Warm, dry, normal turgor, no rashes or lesions noted. LABS Laboratory Results - last 24 hr 05/08/20 05/08/20 06:55 06:55 WBC 5.5 RBC 4.44 Hgb 15.5 Hct 46.6 MCV 104.9 H MCH 34.8 H MCHC 33.2 RDW 13.3 Plt Count 181 MPV 8.7 Sodium 141 Potassium 4.4 Chloride 110 H Carbon Dioxide 26 Anion Gap 6 L BUN 14.1 Creatinine 1.1 Est GFR (CKD-EPI)AfAm 102.40 Est GFR (CKD-EPI)NonAf 88.36 Random Glucose 77 Calcium 8.7 Phosphorus 2.9 Magnesium 2.0 Total Bilirubin 1.1 H AST 19 ALT 22 Alkaline Phosphatase 61 Creatine Kinase 259 Creatine Kinase Index 0.3 CK-MB (CK-2) 1.0 Total Protein 7.0 Albumin 3.5 HOSPITAL COURSE: Date of Admission:05/06/20 Pt presented to the hospital for intoxication, was admitted for PCP and alcohol intoxication. Pt was intoxicated through the day. Pt started on Ativan protocol in evening. Pt received CT head and spine which were negative. Pt was to be transferred to [facility] to complete alcohol detox. However, patient signed out against medical advice, and agreed to and understood the risks of doing so, including seizures, hallucinations, and . Date of Discharge: 05/08/20 Minutes to complete discharge: 36 Discharge Summary Problems reviewed: Yes Reason For Visit: UNRESPONSIVENESS, PHENCYCLIDINE (PCP) INTOXICATION Current Active Problems Alcohol intoxication (Acute) PCP intoxication (Acute) Unresponsive episode (Acute) Condition: Improved - Instructions Diet, Activity, Other Instructions: You came to the hospital because you were intoxicated. You were found to have alcohol and PCP in your system. You were kept in the hospital and started on medications to help with any withdrawal symptoms. You were supposed to go to [facility] to complete your alcohol detox but you left against medical advice, and were explained the risks of doing so and agreed. Please follow up with your primary care physician, in 1 week. If you have any new, worsening or changing symptoms please return to the ED or call 911. Referrals: [facility] [place] [facility] [place] [Provider Group] Disposition: AGAINST MEDICAL ADVICE - Home Medications Comprehensive Discharge Medication List: Ambulatory Orders Folic Acid - 1 mg PO DAILY tablet 05/08/20 LORazepam [Ativan Injection -] 1 mg IVPUSH ONCE PRN vial 05/08/20 LORazepam [Ativan] 0.5 mg PO Q4H PRN tablet 05/08/20 LORazepam [Ativan] 0.5 mg PO Q4H PRN tablet 05/08/20 LORazepam [Ativan] 0.5 mg PO Q6H tablet 05/08/20 LORazepam [Ativan] 0.5 mg PO Q6H tablet 05/08/20 LORazepam [Ativan] 1 mg PO 0500,1100,1700,2300 tablet 05/08/20 LORazepam [Ativan] 1 mg PO 0500,1100,1700,2300 tablet 05/08/20 LORazepam [Ativan] 1 mg PO Q4H PRN tablet 05/08/20 LORazepam [Ativan] 1 mg PO Q4H PRN tablet 05/08/20 LORazepam [Ativan] 2 mg PO 0500,1100,1700,2300 tablet 05/08/20 LORazepam [Ativan] 2 mg PO 0500,1100,1700,2300 tablet 05/08/20 Thiamine HCl [Vitamin B1 -] 100 mg PO DAILY tablet 05/08/20 This patient is new to me today: No Emergency Visit: Yes ED Registration Date: 05/06/20 Care time: The patient presented to the Emergency Department on the above date and was hospitalized for further evaluation of their emergent condition. Critical Care patient: No - Discharge Referral Referred to [facility] No ATTENDING PHYSICIAN STATEMENT I saw and evaluated the patient. I reviewed the resident's note and discussed the case with the resident. I agree with the resident's findings and plan as documented. SUBJECTIVE: OBJECTIVE: ASSESSMENT AND PLAN:
[2020-05-09] MEDS ORDERED: LORazepam 1 MG TABLET PO SCH ×2 (05:00)
[2020-05-10] MEDS ORDERED: LORazepam 0.5 MG TABLET PO PRN ×2
[2020-05-10] MEDS ORDERED: LORazepam 0.5 MG TABLET PO SCH ×2 (05:00)
[2020-05-11] MEDS ORDERED: LORazepam 0.5 MG TABLET PO ONE ×2 (05:00)
== END 2020-05-08 19:16 | disposition left against medical advice (07) | DRG 812 ==
LOC: JER 20:57 → JERBED 23:04 → J4S 05-07 21:50
PROVIDERS: ADMIT Internal Medicine; ATTEND Student in an Organized Health Care Education/Training Program
DX: T40.994A Poisoning by other psychodysleptics [hallucinogens], undetermined, initial encounter (principal); J45.909 Unspecified asthma, uncomplicated; F12.10 Cannabis abuse, uncomplicated; F10.120 Alcohol abuse with intoxication, uncomplicated; Y90.6 Blood alcohol level of 120-199 mg/100 ml; F17.210 Nicotine dependence, cigarettes, uncomplicated; Y92.89 Other specified places as the place of occurrence of the external cause
CPT/HCPCS: 36415; 70450-TC; 71045-TC-FY; 72125-TC; 80053; 80307; 82550; 82553; 82962; 83735; 84100; 84484; 85025; 85027; 85610; 85730; 93005; 93010; 99285-25; U0003